=== PATIENT | female | born 1945 | race Caucasian/White ===

== ENCOUNTER 2018-05-03 11:18 | Inpatient (IN) | payer MEDICARE ==
[~2018-05-03] VITALS: Ht 162.6 cm; Wt 109.6 kg
[~2018-05-03 11:18] MED LIST: ACET-709 PO; AMITRIPTYLINE PO; CELE200C PO; FURO-92 PO; FURO40TA6 PO; OXYC10TA6 PO; RIZA5TAB2 PO; STOOL SOFTENER PO; ZOLP12.52 PO
[2018-05-03] MEDS ORDERED: ACET1TAB64 PO (11:30)
[2018-05-03] MEDS ORDERED: SODIUM CHLORIDE FLUSH 10ML SYR IVF ONE ×2 (11:30→14:00)
[2018-05-03] MEDS ORDERED: KEPPRA PO (11:32)
[2018-05-03] MEDS ORDERED: PROPOFOL 10 MG/ML, 20ML ONE (14:03)
[2018-05-03 14:21] LABS: BASOPHILS # (AUTO) 0.04 x10^3/uL (0-0.1); BASOPHILS % (AUTO) 0 % (0-1); EOSINOPHILS # (AUTO) 0.23 x10^3/uL (0-0.4); EOSINOPHILS % (AUTO) 2 % (1-7); LYMPHOCYTES # (AUTO) 2.58 x10^3/uL (1-3.4); LYMPHOCYTES % (AUTO) 22 % (22-44); MD NO; MEAN CORPUSCULAR HEMOGLOBIN 29.7 pg (27.0-34.8); MEAN CORPUSCULAR HGB CONC 32.6 g/dL (32.4-35.8); MEAN CORPUSCULAR VOLUME 91.2 fL (80-100); MEAN PLATELET VOLUME 8.7 fL (7.4-10.4); MONOCYTES # (AUTO) 0.83 x10^3/uL (0.2-0.8); MONOCYTES % (AUTO) 7 % (2-9); NEUTROPHILS % (AUTO) 69 % (42-75); PLATELET COUNT 383 x10^3/uL (130-400); RED BLOOD COUNT 4.01 x10^6/uL (3.82-5.3); RED CELL DISTRIBUTION WIDTH 14.4 % (9.6-15.2)
[2018-05-03 14:25] LABS: INTERNATIONAL NORMALIZED RATIO 1.03 (0.93-1.1); PROTHROMBIN TIME 10.7 Seconds (9.6-11.5)
[2018-05-03 14:28] LABS: ALBUMIN 3.4 g/dL (3.4-5.0); ANION GAP 7 mmol/L (5-15); CALCIUM 9.3 mg/dL (8.5-10.1); CHLORIDE 97 mmol/L (98-107); CREATININE 1.16 mg/dL (0.55-1.02)
[2018-05-03] MEDS ORDERED: PROPOFOL 10 MG/ML, 20ML IVPush ONE (15:00)
[2018-05-03] MEDS ORDERED: SODIUM CHLORIDE FLUSH 10ML SYR IVF PRN (15:30)
[2018-05-03] MEDS ORDERED: ONDANSETRON 2MG/ML, 2ML IVPush PRN (16:00)
[2018-05-03] MEDS ORDERED: LABETALOL 5MG/ML, 20ML IVPush PRN (16:00)
[2018-05-03] MEDS ORDERED: ONDANSETRON ODT 4 MG PO PRN (16:00)
[2018-05-03] MEDS ORDERED: POLYETHYLENE GLYCOL 17 GM PACKET PO PRN (16:00)
[2018-05-03] MEDS ORDERED: FENTANYL PF 100 MCG/2ML ONE ×2 (16:18→18:21)
[2018-05-03] MEDS ORDERED: RIZATRIPTAN BENZOATE 5 MG PO SCH (16:30)
[2018-05-03 16:31] LABS: FREE T4 (FREE THYROXINE) 1.28 ng/dL (0.76-1.46); THYROID STIMULATING HORMONE 2.02 mIU/L (0.358-3.740)
[2018-05-03] MEDS ORDERED: BUPIVACAINE/PF 0.5% ONE (16:31)
[2018-05-03] MEDS ORDERED: EPINEPHRINE 1 MG/ML, 1ML ONE (16:31)
[2018-05-03] MEDS ORDERED: DEXAMETHASONE 4 MG/ML, 1ML ONE (16:56)
[2018-05-03] MEDS ORDERED: LIDOCAINE 2% 100MG/5ML SYRINGE ONE (16:56)
[2018-05-03] MEDS ORDERED: CEFAZOLIN 1,000 MG ONE (16:56)
[2018-05-03] MEDS ORDERED: ONDANSETRON 2MG/ML, 2ML ONE (16:56)
[2018-05-03] MEDS ORDERED: HALOPERIDOL 5 MG/ML IV PRN (18:00)
[2018-05-03] MEDS ORDERED: KETOROLAC 30 MG/1 ML IV PRN (18:00)
[2018-05-03] MEDS ORDERED: ACETAMINOPHEN 325 MG TABLET PO PRN (18:00)
[2018-05-03] MEDS ORDERED: OXYcodone 5 MG/5 ML ORAL.SOL UDC PO PRN (18:00)
[2018-05-03] MEDS ORDERED: ALBUTEROL SULFATE 2.5 MG/3 ML NPPB PRN (18:00)
[2018-05-03] MEDS ORDERED: HYDROmorphone 2 MG/ML, 1ML ONE (18:22)
[2018-05-03] MEDS: FENTANYL PF 100 MCG/2ML IV PRN ×2 (18:23→18:32)
[2018-05-03] MEDS: HYDROmorphone 1 MG/ML, 1ML IV PRN ×3 (18:28→18:50)
[2018-05-03] MEDS ORDERED: ACETAMINOPHEN 650 MG/20.3 ML UDC ONE (18:47)
[2018-05-03] MEDS ORDERED: OXYcodone 5 MG/5 ML ORAL.SOL UDC ONE (18:47)
[2018-05-03] MEDS ORDERED: ZOLPIDEM TARTRATE 12.5 MG PO SCH (21:00)
[2018-05-03] MEDS: CEFAZOLIN PMX 1GM/50ML 50 ML IVPB SCH (21:00)
[2018-05-03] MEDS ORDERED: ZOLPIDEM 10MG TABLET PO SCH (23:48)
[2018-05-03] MEDS: APAP/CODEINE 300/30MG TABLET PO PRN (23:59)
[2018-05-03] MEDS: LEVETIRACETAM 500 MG TABLET PO SCH (23:59)
[2018-05-04 00:18] VITALS: BP 124/78
[2018-05-04] MEDS: CEFAZOLIN PMX 1GM/50ML 50 ML IVPB SCH ×3 (01:36→16:28)
[2018-05-04] MEDS: D5%-0.45% NACL 1,000 ML IV SCH ×3 (01:36→16:05)
[2018-05-04] MEDS: ZOLPIDEM 10MG TABLET PO SCH ×2 (01:43→22:23)
[2018-05-04 03:11] VITALS: BP 125/71
[2018-05-04] MEDS ORDERED: ALBUTEROL SULFATE 2.5 MG/3 ML NPPB PRN (04:30)
[2018-05-04 05:29] LABS: BASOPHILS # (AUTO) 0.01 x10^3/uL (0-0.1); BASOPHILS % (AUTO) 0 % (0-1); EOSINOPHILS % (AUTO) 0 % (1-7); LYMPHOCYTES % (AUTO) 15 % (22-44); MD NO; MEAN CORPUSCULAR HEMOGLOBIN 29.8 pg (27.0-34.8); MEAN CORPUSCULAR HGB CONC 32.7 g/dL (32.4-35.8); MEAN CORPUSCULAR VOLUME 91.2 fL (80-100); MEAN PLATELET VOLUME 8.9 fL (7.4-10.4); MONOCYTES # (AUTO) 0.46 x10^3/uL (0.2-0.8); MONOCYTES % (AUTO) 6 % (2-9); NEUTROPHILS # (AUTO) 5.69 x10^3/uL (1.8-6.8); NEUTROPHILS % (AUTO) 78 % (42-75); PLATELET COUNT 317 x10^3/uL (130-400); RED BLOOD COUNT 3.68 x10^6/uL (3.82-5.3); RED CELL DISTRIBUTION WIDTH 14.2 % (9.6-15.2)
[2018-05-04 05:32] LABS: CHLORIDE 100 mmol/L (98-107)
[2018-05-04 05:47] LABS: ALANINE AMINOTRANSFERASE 11 U/L (12-78); ALBUMIN 2.8 g/dL (3.4-5.0); ALKALINE PHOSPHATASE 146 U/L (45-117); ANION GAP 9 mmol/L (5-15); BILIRUBIN,TOTAL 0.5 mg/dL (0.2-1.0); CALCIUM 8.7 mg/dL (8.5-10.1); CREATININE 1.04 mg/dL (0.55-1.02); TOTAL PROTEIN 6.5 g/dL (6.4-8.2)
[2018-05-04 06:50] VITALS: BP 119/77
[2018-05-04] MEDS: SENNA/DOCUSATE TABLET PO SCH (08:50)
[2018-05-04] MEDS: DOCUSATE 100 MG CAPSULE PO SCH ×3 (08:51→20:30)
[2018-05-04] MEDS: ENOXAPARIN 40 MG/0.4 ML SQ SCH (08:51)
[2018-05-04] MEDS: LEVETIRACETAM 500 MG TABLET PO SCH ×2 (08:51→20:30)
[2018-05-04] MEDS: RIZATRIPTAN BENZOATE 5 MG PO SCH (08:51)
[2018-05-04] MEDS: APAP/CODEINE 300/30MG TABLET PO PRN ×2 (11:25→22:59)
[2018-05-04 12:24] VITALS: BP 101/54
[2018-05-04] MEDS: OXYcodone IR 5MG TABLET PO PRN ×2 (16:05→20:30)
[2018-05-04 19:36] VITALS: BP 99/63
[2018-05-04 22:53] VITALS: BP 104/65
[2018-05-05] MEDS: OXYcodone IR 5MG TABLET PO PRN ×5 (00:33→19:57)
[2018-05-05] MEDS: D5%-0.45% NACL 1,000 ML IV SCH ×3 (02:00→14:57)
[2018-05-05 02:03] VITALS: BP 109/69
[2018-05-05 06:53] VITALS: BP 111/73
[2018-05-05 07:28] LABS: ALBUMIN 2.5 g/dL (3.4-5.0); ANION GAP 7 mmol/L (5-15); CALCIUM 8.7 mg/dL (8.5-10.1); CHLORIDE 101 mmol/L (98-107); CREATININE 0.91 mg/dL (0.55-1.02)
[2018-05-05 07:29] LABS: MEAN CORPUSCULAR HEMOGLOBIN 30.1 pg (27.0-34.8); MEAN CORPUSCULAR VOLUME 91.1 fL (80-100); MEAN PLATELET VOLUME 8.4 fL (7.4-10.4); PLATELET COUNT 340 x10^3/uL (130-400); RED BLOOD COUNT 3.28 x10^6/uL (3.82-5.3); RED CELL DISTRIBUTION WIDTH 14.9 % (9.6-15.2)
[2018-05-05] MEDS ORDERED: NEUTRA PHOS K 250 MG TABLET PO SCH (08:00)
[2018-05-05 08:18] LABS: MD YES
[2018-05-05 08:19] LABS: EOS#(MANUAL) 0.09 x10^3/uL (0.0-0.4); EOS% (MANUAL) 1 % (1-7); LYMPH#(MANUAL) 3.81 x10^3/uL (1-3.4); LYMPHS% (MANUAL) 41 % (22-44); MONOS#(MANUAL) 0.74 x10^3/uL (0.3-2.7); MONOS% (MANUAL) 8 % (2-9); SEG#(MANUAL) 4.65 x10^3/uL (1.8-6.8); SEGS% (MANUAL) 50 % (42-75)
[2018-05-05 08:20] LABS: <PLATELET ESTIMATE> ADEQUATE; <PLT MORPHOLOGY> NORMAL PLT MORPH; <RBC MORPHOLOGY> NORMAL
[2018-05-05] MEDS: RIZATRIPTAN BENZOATE 5 MG PO SCH (09:00)
[2018-05-05] MEDS: ENOXAPARIN 40 MG/0.4 ML SQ SCH (09:55)
[2018-05-05] MEDS: DOCUSATE 100 MG CAPSULE PO SCH ×2 (09:56→19:57)
[2018-05-05] MEDS: SENNA/DOCUSATE TABLET PO SCH (09:56)
[2018-05-05] MEDS: LEVETIRACETAM 500 MG TABLET PO SCH ×2 (09:56→19:57)
[2018-05-05] MEDS: morphine SULFATE 10 MG/ML, 1ML IVPush PRN ×4 (11:20→21:44)
[2018-05-05 14:01] VITALS: BP 141/82
[2018-05-05 18:48] VITALS: BP 145/74
[2018-05-05] MEDS: ZOLPIDEM 10MG TABLET PO SCH (19:57)
[2018-05-05] MEDS: APAP/CODEINE 300/30MG TABLET PO PRN (22:36)
[2018-05-06] MEDS: OXYcodone IR 5MG TABLET PO PRN ×3 (00:29→13:20)
[2018-05-06] MEDS: D5%-0.45% NACL 1,000 ML IV SCH ×2 (00:29→10:50)
[2018-05-06 02:23] VITALS: BP 114/71
[2018-05-06 05:21] LABS: CHLORIDE 105 mmol/L (98-107)
[2018-05-06 05:25] LABS: BASOPHILS # (AUTO) 0.05 x10^3/uL (0-0.1); BASOPHILS % (AUTO) 1 % (0-1); EOSINOPHILS # (AUTO) 0.17 x10^3/uL (0-0.4); EOSINOPHILS % (AUTO) 2 % (1-7); LYMPHOCYTES # (AUTO) 2.68 x10^3/uL (1-3.4); LYMPHOCYTES % (AUTO) 28 % (22-44); MD NO; MEAN CORPUSCULAR HEMOGLOBIN 30.2 pg (27.0-34.8); MEAN CORPUSCULAR HGB CONC 33.2 g/dL (32.4-35.8); MEAN CORPUSCULAR VOLUME 90.9 fL (80-100); MEAN PLATELET VOLUME 9.3 fL (7.4-10.4); MONOCYTES # (AUTO) 1.23 x10^3/uL (0.2-0.8); MONOCYTES % (AUTO) 13 % (2-9); NEUTROPHILS # (AUTO) 5.37 x10^3/uL (1.8-6.8); NEUTROPHILS % (AUTO) 57 % (42-75); PLATELET COUNT 342 x10^3/uL (130-400); RED BLOOD COUNT 3.33 x10^6/uL (3.82-5.3); RED CELL DISTRIBUTION WIDTH 14.2 % (9.6-15.2)
[2018-05-06 05:27] LABS: ALANINE AMINOTRANSFERASE 9 U/L (12-78); ALBUMIN 2.5 g/dL (3.4-5.0); ALKALINE PHOSPHATASE 133 U/L (45-117); ANION GAP 7 mmol/L (5-15); BILIRUBIN,TOTAL 0.3 mg/dL (0.2-1.0); CALCIUM 8.2 mg/dL (8.5-10.1); CREATININE 0.81 mg/dL (0.55-1.02); TOTAL PROTEIN 6.4 g/dL (6.4-8.2)
[2018-05-06 06:59] VITALS: BP 138/83
[2018-05-06] MEDS: DOCUSATE 100 MG CAPSULE PO SCH (07:58)
[2018-05-06] MEDS: LEVETIRACETAM 500 MG TABLET PO SCH (07:58)
[2018-05-06] MEDS: ENOXAPARIN 40 MG/0.4 ML SQ SCH (07:58)
[2018-05-06] MEDS: SENNA/DOCUSATE TABLET PO SCH (07:58)
[2018-05-06] MEDS: RIZATRIPTAN BENZOATE 5 MG PO SCH (07:59)
[2018-05-06] MEDS: APAP/CODEINE 300/30MG TABLET PO PRN (09:47)
[2018-05-06] MEDS ORDERED: OXYC5TAB3 PO (10:34)
[2018-05-06] MEDS ORDERED: LEVE500T53 PO (10:42)
[2018-05-06 12:35] VITALS: BP 153/87
== END 2018-05-06 13:37 | DRG 492 ==
LOC: ED 15:02 → EDIP 15:03 → ED 15:56 → 4NOR 20:20
PROVIDERS: ADMIT Hospitalist; ATTEND Hospitalist
PROC: 0QSG04Z Reposition Right Tibia with Internal Fixation Device, Open Approach (ICD-10-PCS; 2018-05-03)
PROC: 0SSF04Z Reposition Right Ankle Joint with Internal Fixation Device, Open Approach (ICD-10-PCS; 2018-05-03)
PROC: 0SSFXZZ Reposition Right Ankle Joint, External Approach (ICD-10-PCS; 2018-05-03)
PROC: 0QSJ04Z Reposition Right Fibula with Internal Fixation Device, Open Approach (ICD-10-PCS; principal; 2018-05-03 18:00)
DX: S82.851A Displaced trimalleolar fracture of right lower leg, initial encounter for closed fracture (principal); E43 Unspecified severe protein-calorie malnutrition; N17.0 Acute kidney failure with tubular necrosis; E87.1 Hypo-osmolality and hyponatremia; Z68.41 Body mass index [BMI] 40.0-44.9, adult; S93.431A Sprain of tibiofibular ligament of right ankle, initial encounter; Z66 Do not resuscitate; M19.90 Unspecified osteoarthritis, unspecified site; D64.9 Anemia, unspecified; D72.829 Elevated white blood cell count, unspecified; G40.909 Epilepsy, unspecified, not intractable, without status epilepticus; G43.909 Migraine, unspecified, not intractable, without status migrainosus; G89.29 Other chronic pain; I10 Essential (primary) hypertension; Z96.651 Presence of right artificial knee joint; S93.439A Sprain of tibiofibular ligament of unspecified ankle, initial encounter; W18.39XA Other fall on same level, initial encounter; Y93.89 Activity, other specified; Y92.89 Other specified places as the place of occurrence of the external cause; Y99.8 Other external cause status; Z79.899 Other long term (current) drug therapy
CPT/HCPCS: 27818; 36415; 71045; 76000; 80048; 80053; 82040; 83735; 84100; 84439; 84443; 85025; 85610; 86850; 86900; 93005; 99152; 99153; 99285; C1713; J0171; J0690; J1100; J1170; J1650; J2405; J3010; J3490; J2270